=== PATIENT | female | born 1950 | race Caucasian/White ===

== ENCOUNTER → 2017-07-30 | Outpatient (CLI) | payer OTHER ==
[~2017-07-30] MED LIST: ASPIR 8181 MG PO; ATORVASTATIN CA40 MG PO; CARVEDILOL12.5 MG PO; COZAAR 25 MG TA25 M1 PO; COZAAR 50 MG TA50 M2; ENTRESTO 49 MG1 EACH PO; FENOFIBRATE160 MG PO; GLUCOPHAGE XR500 MG; KLOR-CON 1010 MEQ PO; LASIX 20 MG TAB20 MG PO; MULTI VITAMIN1 EACH PO; NITROGLYCERIN0.4 MG SUBLING; PROPRANOLOL 1010 MG PO; RESTORIL30 MG PO; SPIRONOLACTONE50 MG PO; VALSARTAN-HCTZ1 EAC1 PO; VENLAFAXIN75 MG/1 T2 PO; VENLAFAXINE HC225 MG PO; WELLBUTRIN XL300 MG PO; XANAX 0.25 MG0.25 MG PO; ZANTAC 150MG T150 MG
== END ==
LOC: RAD 14:06
DX: J18.9 Pneumonia, unspecified organism (principal)